=== PATIENT | male | born 1935 | race Caucasian/White ===

== ENCOUNTER → 2017-04-02 07:29 | Outpatient (CLI) | payer MEDICARE ==
[2016-06-23 06:43] VITALS: BMI 26.2
[~2017-04-02 07:29] MED LIST: ADVAIR 250/501 DISK INH; ALPHAGAN 0.2%5 ML LEFT EYE; ASPIRIN EC81 M1 PO; BUMEX 1 MG TAB1 MG PO; COREG 3.1253.125 MG GT; COREG 3.1253.125 MG PO; COUMADIN4 MG PO; COUMADIN5 MG PO; GLIMEPIRIDE1 MG PO; GLYBURIDE5 M1 PO; MEDROL DOSE PACK4 MG PO; PEPCID40 MG PO; SINGULAIR10 MG PO; SYNTHROID25 MCG PO; TRAZODONE HCL50 MG PO; TRUSOPT 2 % OPT10 ML LEFT EYE; ZOCOR20 MG PO; ZYLOPRIM300 MG PO
== END ==
LOC: D.US 07:29
DX: I71.4 Abdominal aortic aneurysm, without rupture (principal)

== ENCOUNTER → 2017-04-09 12:34 | Outpatient (CLI) | payer MEDICARE ==
[2016-06-23 06:43] VITALS: BMI 26.2
== END | disposition home or self-care (01) ==
LOC: D.US 12:34
DX: I65.23 Occlusion and stenosis of bilateral carotid arteries (principal)

== ENCOUNTER → 2018-01-25 12:26 | Outpatient (CLI) | payer MEDICARE ==
[2016-06-23 06:43] VITALS: BMI 26.2
[2018-01-25 13:40] LABS: CREATININE - SERUM 1.5 mg/dL (0.6-1.3)
== END | disposition home or self-care (01) ==
LOC: D.CT 12:26
PROVIDERS: Internal Medicine Cardiovascular Disease
DX: I73.9 Peripheral vascular disease, unspecified (principal); M79.605 Pain in left leg; M79.604 Pain in right leg

== ENCOUNTER → 2018-04-05 12:26 | Outpatient (CLI) | payer MEDICARE ==
[2016-06-23 06:43] VITALS: BMI 26.2
== END | disposition home or self-care (01) ==
LOC: D.CT 12:26
DX: R26.0 Ataxic gait (principal)

== ENCOUNTER → 2018-04-10 07:23 | Outpatient (CLI) | payer MEDICARE ==
[2016-06-23 06:43] VITALS: BMI 26.2
== END | disposition home or self-care (01) ==
LOC: D.US 04-09 08:00
DX: I71.4 Abdominal aortic aneurysm, without rupture (principal); I65.23 Occlusion and stenosis of bilateral carotid arteries

== ENCOUNTER 2018-06-05 22:41 | Emergency (ER) | payer MEDICARE ==
[~2018-06-05] VITALS: Ht 188 cm; Wt 92.3 kg
[2018-06-05 22:51] VITALS: Ht 188 cm; Wt 92.3 kg
[2018-06-05] MEDS ORDERED: CILOSTAZOL50 MG PO (22:55)
[2018-06-06] MEDS ORDERED: MEDROL DOSE PACK4 MG PO (00:05)
[2018-06-06 00:35] VITALS: BP 165/71
== END 2018-06-06 00:36 | disposition home or self-care (01) ==
LOC: D.ER 22:41
DX: T78.1XXA Other adverse food reactions, not elsewhere classified, initial encounter (principal); X58.XXXA Exposure to other specified factors, initial encounter; L50.9 Urticaria, unspecified; Z86.73 Personal history of transient ischemic attack (TIA), and cerebral infarction without residual deficits; E11.9 Type 2 diabetes mellitus without complications; E07.9 Disorder of thyroid, unspecified; I10 Essential (primary) hypertension; Z95.0 Presence of cardiac pacemaker; I25.810 Atherosclerosis of coronary artery bypass graft(s) without angina pectoris

== ENCOUNTER 2018-08-15 07:18 | Outpatient (CLI) | payer MEDICARE ==
[2018-08-12 15:25] LABS: CREATININE - SERUM 1.3 mg/dL (0.6-1.3)
[~2018-08-15] VITALS: Ht 188 cm; Wt 86.2 kg
[~2018-08-15 07:18] MED LIST changes: +CILOSTAZOL50 MG PO
[2018-08-15 08:10] VITALS: BP 124/52; Ht 188 cm; Wt 86.2 kg
== END 2018-08-15 16:00 | disposition home or self-care (01) ==
LOC: D.CT 07:18
PROVIDERS: Family Medicine
DX: R10.9 Unspecified abdominal pain (principal)

== ENCOUNTER → 2018-08-27 07:26 | Outpatient (CLI) | payer MEDICARE | END | disposition home or self-care (01) | LOC: D.CT 07:26 | DX: R91.8 Other nonspecific abnormal finding of lung field (principal) ==

== ENCOUNTER → 2020-04-12 07:57 | Outpatient (CLI) | payer MEDICARE | END | disposition home or self-care (01) | LOC: D.US 07:57 → D.CT 09:00 | PROVIDERS: ATTEND Internal Medicine Cardiovascular Disease | DX: I73.9 Peripheral vascular disease, unspecified (principal); I65.23 Occlusion and stenosis of bilateral carotid arteries ==